=== PATIENT | female | born 1970 ===

== ENCOUNTER 2016-12-20 19:35 | Emergency (ER) | payer OTHER ==
--- NOTE | 2016-12-21 00:53 | ED MAR SUMMARY ---
..... Medication Administration Record [facility] [address], [place] [id number] Patient: FRANCISCA BULLARD Visit ID: [id number] 46y, F Weight: 92.9 kg Height/Length: 65 in BMI: 34.1 ALLERGIES: Sulfa Antibiotics
--- NOTE | 2016-12-21 00:53 | ED CLINICAL REPORT ---
Clinical Report - Physicians/Mid Levels [facility] [address] [place] [address] 12/20/2016 19:39 Patient: FRANCISCA BULLARD Time Seen: 19:47; initial patient contact, initial documentation, patient care assumed. Arrived- By private vehicle. Historian- patient. HISTORY OF PRESENT ILLNESS Chief Complaint: COUGH. This started about 1 months ago and is still present. The illness is described as moderate. The patient has had a dry cough, nasal congestion and a nasal discharge. No sputum production, chest discomfort or pain, fever or muscle aches. No sore throat, sinus pressure, sinus drainage or ear pain. The patient has had mild difficulty breathing (bad coughing spells where it is also hard to breathe and then she gets dizzy). The patient has also had wheezing. Additional history - No known contact with a sick individual. No recent travel. Similar symptoms previously: None. Recent medical care: The patient was seen recently in a clinic. ( has been to 3 providers (urgent care and walk in clinics) for symptoms, finished course of prednisone, still on augmentin. still not feeling better after 1 month). REVIEW OF SYSTEMS No headache. All systems otherwise negative, except as recorded above. PAST HISTORY See nurses notes. PROBLEMS: no known problems. ADDITIONAL SURGERIES: Laparoscopy. --19:50 Celeste Escobedo R.N. SOCIAL HISTORY Never smoker. Not exposed to second-hand smoke at home. No alcohol use or drug use. No recent travel. Is a local resident. FAMILY HISTORY Negative. ADDITIONAL NOTES The nursing notes have been reviewed with agreement regarding the chief complaint, HPI, ROS, PMH and patient medications and allergies. PHYSICAL EXAM Vital Signs: 12/20/2016 19:45 BP: 117/64. HR: 71. RR: 18. O2 saturation: 98%. Temp: 97.6 F. Have been reviewed as normal and appear to be correct. Appearance: Alert. No acute distress. Eyes: Pupils equal, round and reactive to light. Eyes normal inspection. ENT: Ears normal. Nose normal. Pharynx normal. Uvula midline. Neck: Normal inspection. Neck supple. CVS: Normal heart rate and rhythm. Heart sounds normal. Pulses normal. Respiratory: No respiratory distress. Breath sounds normal. Back: Normal inspection. Skin: Skin warm and dry. Normal skin color. No rash. Normal skin turgor. Extremities: Extremities exhibit normal ROM. No lower extremity edema. Neuro: Oriented X 3. No motor deficit. No sensory deficit. PROGRESS AND PROCEDURES Patient counseled in person regarding the patient's stable condition and diagnosis. 20:16. Differential Diagnosis: Other possible considerations: uri, viral illness, bronchitis, pneumonia, bronchospasm. Above considerations are based on history and physical exam. Differential diagnosis was discussed with patient. Disposition: Discharged home in good and unchanged condition (20:17). Condition: good and stable. CLINICAL IMPRESSION Acute viral bronchitis associated with bronchospasm. INSTRUCTIONS Drink plenty of fluids until better. (continue with current medications as previously directed and discussed). Warnings: GENERAL WARNINGS: Return or contact your physician immediately if your condition worsens or changes unexpectedly, if not improving as expected, or if other problems arise. Specifically return if problem worsens. Prescription Medications: Albuterol HFA oral inhaler: inhale 1 to 2 puffs every four to six hours as needed for difficulty breathing. Dispense one (1) unit. No refills. Tessalon Perles 100 mg: Take 1 orally every 8 hours as needed for cough. Dispense twenty (20). No refills. Substitution is permissible. Follow-up: Follow up with your doctor in about five days as needed. Call for an appointment. Summary of care provided to patient. Understanding of the discharge instructions verbalized by parent. (Electronically signed by Jess Grace A.R.N.P. 12/20/2016 20:57)
--- NOTE | 2016-12-21 00:53 | ED DISCHARGE INSTRUCTIONS ---
Patient: FRANCISCA BULLARD General Instructions [facility] VisitID: [id number] [place] [address] 46y, F Registration Date/Time: 12/20/2016 Acute viral bronchitis associated with bronchospasm. INSTRUCTIONS Drink plenty of fluids until better. (continue with current medications as previously directed and discussed). Warnings: GENERAL WARNINGS: Return or contact your physician immediately if your condition worsens or changes unexpectedly, if not improving as expected, or if other problems arise. Specifically return if problem worsens. Prescription Medications: Albuterol HFA oral inhaler: inhale 1 to 2 puffs every four to six hours as needed for difficulty breathing. Dispense one (1) unit. No refills. Tessalon Perles 100 mg: Take 1 orally every 8 hours as needed for cough. Dispense twenty (20). No refills. Substitution is permissible. Follow-up: Follow up with your doctor in about five days as needed. Call for an appointment. Summary of care provided to patient. Understanding of the discharge instructions verbalized by parent. ADDITIONAL INFORMATION Bronchitis (Adult: Abx Tx) BRONCHITIS is an infection of the air passages (bronchial tubes). It often occurs during the common cold. Symptoms include cough with mucus (phlegm) and low-grade fever. Bronchitis usually lasts 7-14 days. Mild cases can be treated with simple home remedies. More severe infection is treated with an antibiotic. Home Care: If symptoms are severe, rest at home for the first 2-3 days. When you resume activity, don't let yourself get too tired. Do not smoke. Avoid being exposed to the smoke of others. You may use acetaminophen (Tylenol) or ibuprofen (Motrin, Advil) to control fever or pain, unless another medicine was prescribed for this. [NOTE: If you have chronic liver or kidney disease or ever had a stomach ulcer or GI bleeding, talk with your doctor before using these medicines.] Your appetite may be poor, so a light diet is fine. Avoid dehydration by drinking 6-8 glasses of fluids per day (water, soft, drinks, juices, tea, soup, etc.). Extra fluids will help loosen secretions in the lungs. Tudc-yck-nnnasog cough medicines that containdextromethorphan(such as Robitussin DM) and decongestants (Actifed or Sudafed) may help relieve cough and congestion. [NOTE: Do not use decongestants if you have high blood pressure.] Finish all antibiotic medicine, even if you are feeling better after only a few days. Follow Up with your doctor or as directed if you dont start to feel better after three days. [NOTE: If you are age 65 or older, or if you have chronic asthma or COPD, we recommend a PNEUMOCOCCAL VACCINATION every five years and a yearly INFLUENZAVACCINATION (FLU-SHOT) every . Ask your doctor about this. If you had an X-ray, a radiologist will review it. You will be notified of any new findings that may affect your care.] Get Prompt Medical Attention if any of the following occur: Fever over 100.4F (38.0C) for more than three days Trouble breathing, wheezing or pain with breathing Coughing up blood or increased amounts of colored sputum Weakness, drowsiness, headache, facial pain, ear pain or a stiff neck Albuterol Sulfate Pressurized inhalation, suspension What is this medicine? ALBUTEROL (al BYOO ter ole) is a bronchodilator. It helps open up the airways in your lungs to make it easier to breathe. This medicine is used to treat and to prevent bronchospasm. How should I use this medicine? This medicine is for inhalation through the mouth. Follow the directions on your prescription label. Take your medicine at regular intervals. Do not use more often than directed. Make sure that you are using your inhaler correctly. Ask you doctor or health care provider if you have any questions. Talk to your saw runner regarding the use of this medicine in children. Special care may be needed. What side effects may I notice from receiving this medicine? Side effects that you should report to your doctor or health manager primary care as soon as possible: allergic reactions like skin rash, itching or hives, swelling of the face, lips, or tongue breathing problems chest pain feeling faint or lightheaded, falls high blood pressure irregular heartbeat fever muscle cramps or weakness pain, tingling, numbness in the hands or feet vomiting Side effects that usually do not require medical attention (report to your doctor or health manager primary care if they continue or are bothersome): cough difficulty sleeping headache nervousness or trembling stomach upset stuffy or runny nose throat irritation unusual taste What may interact with this medicine? anti-infectives like chloroquine and pentamidine caffeine cisapride diuretics medicines for colds medicines for depression or for emotional or psychotic conditions medicines for weight loss including some herbal products methadone some antibiotics like clarithromycin, erythromycin, levofloxacin, and linezolid some heart medicines steroid hormones like dexamethasone, cortisone, hydrocortisone theophylline thyroid hormones What if I miss a dose? If you miss a dose, use it as soon as you can. If it is almost time for your next dose, use only that dose. Do not use double or extra doses. Where should I keep my medicine? Keep out of the reach of children. Store at room temperature between 15 and 30 degrees C (59 and 86 degrees F). The contents are under pressure and may burst when exposed to heat or flame. Do not freeze. This medicine does not work as well if it is too cold. Throw away any unused medicine after the expiration date. Inhalers need to be thrown away after the labeled number of puffs have been used or by the expiration date; whichever comes first. Ventolin HFA should be thrown away 12 months after removing from foil pouch. Check the instructions that come with your medicine. What should I tell my health care provider before I take this medicine? They need to know if you have any of the following conditions: diabetes heart disease or irregular heartbeat high blood pressure pheochromocytoma seizures thyroid disease an unusual or allergic reaction to albuterol, levalbuterol, sulfites, other medicines, foods, dyes, or preservatives or trying to get breast-feeding What should I watch for while using this medicine? Tell your doctor or health manager primary care if your symptoms do not improve. Do not use extra albuterol. If your asthma or bronchitis gets worse while you are using this medicine, call your doctor right away. If your mouth gets dry try chewing sugarless gum or sucking hard candy. Drink water as directed. Benzonatate Oral capsule, liquid filled What is this medicine? BENZONATATE (lazaro ALTAF na molina) is used to treat cough. How should I use this medicine? Take this medicine by mouth with a glass of water. Follow the directions on the prescription label. Avoid breaking, chewing, or sucking the capsule, as this can cause serious side effects. Take your medicine at regular intervals. Do not take your medicine more often than directed. Talk to your saw runner regarding the use of this medicine in children. While this drug may be prescribed for children as young as 10 years old for selected conditions, precautions do apply. What side effects may I notice from receiving this medicine? Side effects that you should report to your doctor or health manager primary care as soon as possible: allergic reactions like skin rash, itching or hives, swelling of the face, lips, or tongue breathing problems chest pain confusion or hallucinations irregular heartbeat numbness of mouth or throat seizures Side effects that usually do not require medical attention (report to your doctor or health manager primary care if they continue or are bothersome): burning feeling in the eyes constipation headache nasal congestion stomach upset What may interact with this medicine? Do not take this medicine with any of the following medications: MAOIs like Carbex, Eldepryl, Marplan, Nardil, and Parnate What if I miss a dose? If you miss a dose, take it as soon as you can. If it is almost time for your next dose, take only that dose. Do not take double or extra doses. Where should I keep my medicine? Keep out of the reach of children. Store at room temperature between 15 and 30 degrees C (59 and 86 degrees F). Keep tightly closed. Protect from light and moisture. Throw away any unused medicine after the expiration date. What should I tell my health care provider before I take this medicine? They need to know if you have any of these conditions: kidney or liver disease an unusual or allergic reaction to benzonatate, anesthetics, other medicines, foods, dyes, or preservatives or trying to get breast-feeding What should I watch for while using this medicine? Tell your doctor if your symptoms do not improve or if they get worse. If you have a high fever, skin rash, or headache, see your health manager primary care. You may get drowsy or dizzy. Do not drive, use machinery, or do anything that needs mental alertness until you know how this medicine affects you. Do not sit or stand up quickly, especially if you are an older patient. This reduces the risk of dizzy or fainting spells. You have been given the following additional information: Bronchitis, Antiobiotic Treatment (Adult) Albuterol Sulfate Pressurized inhalation, suspension Benzonatate Oral capsule, liquid filled (Electronically signed by Jess Grace A.R.N.P. 12/20/2016 20:57)
--- NOTE | 2016-12-21 00:53 | ED NURSING NOTES ---
Clinical Report - Nurses [facility] [address] [place] [address] 12/20/2016 19:39 Patient: FRANCISCA BULLARD TRIAGE Triage time 19:45 Dec 20 2016. Acuity: LEVEL 3. Chief Complaint: (cold symptoms for 1 month). 19:45 12/20/16. SEPSIS SCREEN: Sepsis Screen. Negative (no infection suspected/documented). TERESSA COMA SCORE: Teressa Coma Scale: 15- eyes open spontaneously (4); best verbal response- oriented x 4 (5); best motor response- obeys commands (6). --19:53 Celeste Escobedo R.N. 19:45 12/20/16. BP: 117/64. HR: 71. RR: 18. O2 saturation: 98%. Temp: 97.6 F. Pain level now 0/10. --19:53 Celeste Escobedo R.N. Weight: 92.9 kg stated. Height/Length: 65 inches Per Patient. BMI: 34.1. --19:45 Celeste Escobedo R.N. Medications Amoxicillin. --19:47 Celeste Escobedo R.N. PredniSONE. --19:48 Celeste Escobedo R.N. Augmentin. --19:49 Celeste Escobedo R.N. Iron. --19:50 Celeste Escobedo R.N. Vitamin D2. --19:50 Celeste Escobedo R.N. Allergies Sulfa Antibiotics. --19:47 Celeste Escobedo R.N. Medication/allergy information source: the patient. --19:53 Celeste Escobedo R.N. History Arrived by private vehicle. Historian: patient. Onset. (1 months). ( has been to 3 providers (urgent care and walk in clinics) for symptoms, finished course of prednisone, still on augmentin. still not feeling better after 1 month, Fatigue, dry cough.). 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 PAST MEDICAL HX: Immunizations: seasonal influenza. Last normal menstrual period was 1 week ago. SOCIAL HX: Never smoker. No alcohol use or drug use. No infectious disease exposure. ABUSE ASSESSMENT: No report of abuse. SELF HARM ASSESSMENT: A self harm assessment was performed. The patient answered "no" to the question "Have you recently felt down, depressed, or hopeless?", "Have you noticed less interest or pleasure in doing things?", "Do you have thoughts of harming or killing yourself?", "Are you here because you tried to hurt yourself?", "Have you ever tried to hurt yourself before today?", "Have you recently had thoughts about harming or killing others?" and "Do you have any dangerous items in your possession?". FALL RISK ASSESSMENT: Fall risk assessment completed. No fall risk identified. NUTRITIONAL RISK ASSESSMENT: The nutritional risk assessment revealed no deficiencies. FUNCTIONAL ASSESSMENT: Functional assessment: no impairments noted. LEARNING NEEDS ASSESSMENT: The learning needs assessment revealed no barriers. SKIN INTEGRITY ASSESSMENT: Skin integrity risk assessment completed. No skin integrity risk identified. --19:53 Celeste Escobedo R.N. PROBLEMS: no known problems. ADDITIONAL SURGERIES: Laparoscopy. --19:50 Celeste Escobedo R.N. Interventions ID band on patient. --19:53 Celeste Escobedo R.N. PHYSICAL ASSESSMENT 19:45 12/20/16. GENERAL / NEURO / PSYCH: Alert. Oriented X 4. HEENT: Mucous membranes are pink. RESPIRATORY: Breath sounds within normal limits. CVS: Pulses within normal limits. GI / : Abdomen soft. SKIN: Skin intact. Skin is warm and dry. --00:51 Celeste Escobedo R.N. NURSING PROGRESS NOTES 19:45 12/20/16. The initial plan of care for this patient includes an assessment with efforts to address impairment of the respiratory system. This plan of care was discussed with the patient. Patient gowned. Reassurance given. Two patient identifiers checked. Call light placed in reach. Side rails up x 1. Bed placed in lowest position. Brakes of bed on. Patient ready for evaluation. --19:56 Celeste Escobedo R.N. DISPOSITION / DISCHARGE 20:40 12/20/16. Condition at departure: improved and stable. The goals identified in the patient's plan of care were met. No learning barriers present. Patient verbalized understanding. Written instructions provided in Palestinian. The patient was discharged home. She left the Emergency Department ambulatory and via private vehicle. Patient driving. --00:53 Celeste Escobedo R.N. 20:40 12/20/16. BP: 112/67. HR: 69. RR: 18. O2 saturation: 100%. Temp: 98.0 F. Pain level now 5/10. --00:53 Celeste Escobedo R.N. Departure time: 2039Dec 20 2016. --00:53 Celeste Escobedo R.N. Locked/Released at 12/21/2016 0:53 by Celeste Escobedo R.N.
--- NOTE | 2016-12-21 00:53 | ED NURSING NOTES ---
Clinical Report - Nurses [facility] [address] [place] [address] 12/20/2016 19:39 Patient: FRANCISCA BULLARD TRIAGE Triage time 19:45 Dec 20 2016. Acuity: LEVEL 3. Chief Complaint: (cold symptoms for 1 month). 19:45 12/20/16. SEPSIS SCREEN: Sepsis Screen. Negative (no infection suspected/documented). TERESSA COMA SCORE: Teressa Coma Scale: 15- eyes open spontaneously (4); best verbal response- oriented x 4 (5); best motor response- obeys commands (6). --19:53 Celeste Escobedo R.N. 19:45 12/20/16. BP: 117/64. HR: 71. RR: 18. O2 saturation: 98%. Temp: 97.6 F. Pain level now 0/10. --19:53 Celeste Escobedo R.N. Weight: 92.9 kg stated. Height/Length: 65 inches Per Patient. BMI: 34.1. --19:45 Celeste Escobedo R.N. Medications Amoxicillin. --19:47 Celeste Escobedo R.N. PredniSONE. --19:48 Celeste Escobedo R.N. Augmentin. --19:49 Celeste Escobedo R.N. Iron. --19:50 Celeste Escobedo R.N. Vitamin D2. --19:50 Celeste Escobedo R.N. Allergies Sulfa Antibiotics. --19:47 Celeste Escobedo R.N. Medication/allergy information source: the patient. --19:53 Celeste Escobedo R.N. History Arrived by private vehicle. Historian: patient. Onset. (1 months). ( has been to 3 providers (urgent care and walk in clinics) for symptoms, finished course of prednisone, still on augmentin. still not feeling better after 1 month, Fatigue, dry cough.). 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 PAST MEDICAL HX: Immunizations: seasonal influenza. Last normal menstrual period was 1 week ago. SOCIAL HX: Never smoker. No alcohol use or drug use. No infectious disease exposure. ABUSE ASSESSMENT: No report of abuse. SELF HARM ASSESSMENT: A self harm assessment was performed. The patient answered "no" to the question "Have you recently felt down, depressed, or hopeless?", "Have you noticed less interest or pleasure in doing things?", "Do you have thoughts of harming or killing yourself?", "Are you here because you tried to hurt yourself?", "Have you ever tried to hurt yourself before today?", "Have you recently had thoughts about harming or killing others?" and "Do you have any dangerous items in your possession?". FALL RISK ASSESSMENT: Fall risk assessment completed. No fall risk identified. NUTRITIONAL RISK ASSESSMENT: The nutritional risk assessment revealed no deficiencies. FUNCTIONAL ASSESSMENT: Functional assessment: no impairments noted. LEARNING NEEDS ASSESSMENT: The learning needs assessment revealed no barriers. SKIN INTEGRITY ASSESSMENT: Skin integrity risk assessment completed. No skin integrity risk identified. --19:53 Celeste Escobedo R.N. PROBLEMS: no known problems. ADDITIONAL SURGERIES: Laparoscopy. --19:50 Celeste Escobedo R.N. Interventions ID band on patient. --19:53 Celeste Escobedo R.N. PHYSICAL ASSESSMENT 19:45 12/20/16. GENERAL / NEURO / PSYCH: Alert. Oriented X 4. HEENT: Mucous membranes are pink. RESPIRATORY: Breath sounds within normal limits. CVS: Pulses within normal limits. GI / : Abdomen soft. SKIN: Skin intact. Skin is warm and dry. --00:51 Celeste Escobedo R.N. NURSING PROGRESS NOTES 19:45 12/20/16. The initial plan of care for this patient includes an assessment with efforts to address impairment of the respiratory system. This plan of care was discussed with the patient. Patient gowned. Reassurance given. Two patient identifiers checked. Call light placed in reach. Side rails up x 1. Bed placed in lowest position. Brakes of bed on. Patient ready for evaluation. --19:56 Celeste Escobedo R.N. DISPOSITION / DISCHARGE 20:40 12/20/16. Condition at departure: improved and stable. The goals identified in the patient's plan of care were met. No learning barriers present. Patient verbalized understanding. Written instructions provided in Egyptian. The patient was discharged home. She left the Emergency Department ambulatory and via private vehicle. Patient driving. --00:53 Celeste Escobedo R.N. 20:40 12/20/16. BP: 112/67. HR: 69. RR: 18. O2 saturation: 100%. Temp: 98.0 F. Pain level now 5/10. --00:53 Celeste Escobedo R.N. Departure time: 2039Dec 20 2016. --00:53 Celeste Escobedo R.N. Locked/Released at 12/21/2016 0:53 by Celeste Escobedo R.N.
--- NOTE | 2016-12-21 00:53 | ED CLINICAL REPORT ---
Clinical Report - Physicians/Mid Levels [facility] [address] [place] [address] 12/20/2016 19:39 Patient: FRANCISCA BULLARD Time Seen: 19:47; initial patient contact, initial documentation, patient care assumed. Arrived- By private vehicle. Historian- patient. HISTORY OF PRESENT ILLNESS Chief Complaint: COUGH. This started about 1 months ago and is still present. The illness is described as moderate. The patient has had a dry cough, nasal congestion and a nasal discharge. No sputum production, chest discomfort or pain, fever or muscle aches. No sore throat, sinus pressure, sinus drainage or ear pain. The patient has had mild difficulty breathing (bad coughing spells where it is also hard to breathe and then she gets dizzy). The patient has also had wheezing. Additional history - No known contact with a sick individual. No recent travel. Similar symptoms previously: None. Recent medical care: The patient was seen recently in a clinic. ( has been to 3 providers (urgent care and walk in clinics) for symptoms, finished course of prednisone, still on augmentin. still not feeling better after 1 month). REVIEW OF SYSTEMS No headache. All systems otherwise negative, except as recorded above. PAST HISTORY See nurses notes. PROBLEMS: no known problems. ADDITIONAL SURGERIES: Laparoscopy. --19:50 eCleste Escobedo R.N. SOCIAL HISTORY Never smoker. Not exposed to second-hand smoke at home. No alcohol use or drug use. No recent travel. Is a local resident. FAMILY HISTORY Negative. ADDITIONAL NOTES The nursing notes have been reviewed with agreement regarding the chief complaint, HPI, ROS, PMH and patient medications and allergies. PHYSICAL EXAM Vital Signs: 12/20/2016 19:45 BP: 117/64. HR: 71. RR: 18. O2 saturation: 98%. Temp: 97.6 F. Have been reviewed as normal and appear to be correct. Appearance: Alert. No acute distress. Eyes: Pupils equal, round and reactive to light. Eyes normal inspection. ENT: Ears normal. Nose normal. Pharynx normal. Uvula midline. Neck: Normal inspection. Neck supple. CVS: Normal heart rate and rhythm. Heart sounds normal. Pulses normal. Respiratory: No respiratory distress. Breath sounds normal. Back: Normal inspection. Skin: Skin warm and dry. Normal skin color. No rash. Normal skin turgor. Extremities: Extremities exhibit normal ROM. No lower extremity edema. Neuro: Oriented X 3. No motor deficit. No sensory deficit. PROGRESS AND PROCEDURES Patient counseled in person regarding the patient's stable condition and diagnosis. 20:16. Differential Diagnosis: Other possible considerations: uri, viral illness, bronchitis, pneumonia, bronchospasm. Above considerations are based on history and physical exam. Differential diagnosis was discussed with patient. Disposition: Discharged home in good and unchanged condition (20:17). Condition: good and stable. CLINICAL IMPRESSION Acute viral bronchitis associated with bronchospasm. INSTRUCTIONS Drink plenty of fluids until better. (continue with current medications as previously directed and discussed). Warnings: GENERAL WARNINGS: Return or contact your physician immediately if your condition worsens or changes unexpectedly, if not improving as expected, or if other problems arise. Specifically return if problem worsens. Prescription Medications: Albuterol HFA oral inhaler: inhale 1 to 2 puffs every four to six hours as needed for difficulty breathing. Dispense one (1) unit. No refills. Tessalon Perles 100 mg: Take 1 orally every 8 hours as needed for cough. Dispense twenty (20). No refills. Substitution is permissible. Follow-up: Follow up with your doctor in about five days as needed. Call for an appointment. Summary of care provided to patient. Understanding of the discharge instructions verbalized by parent. (Electronically signed by Jess Grace A.R.N.P. 12/20/2016 20:57)
--- NOTE | 2016-12-21 00:53 | ED MAR SUMMARY ---
..... Medication Administration Record [facility] [address], [place] [id number] Patient: FRANCISCA BULLARD Visit ID: [id number] 46y, F Weight: 92.9 kg Height/Length: 65 in BMI: 34.1 ALLERGIES: Sulfa Antibiotics
--- NOTE | 2016-12-21 00:54 | ED MED RECONCILIATION SUMMARY ---
Patient: FRANCISCA BULLARD Medication Reconciliation Report [facility] VisitID: [id number] [address] [place] [address] 46y, F Registration Date/Time: 12/20/2016 Weight: 92.9 kg Height/Length: 65 in. BMI: 34.1 ALLERGIES: Sulfa Antibiotics The patient's Home Medications are listed below: THE FOLLOWING MEDICATIONS NEED TO BE RECONCILED: Amoxicillin Augmentin Iron PredniSONE Vitamin D2 The source(s) of the original Home Medication information: patient The following Medications were given to the patient in the Emergency Department: None. The following Medications were prescribed to the patient: Albuterol HFA oral inhaler: inhale 1 to 2 puffs every four to six hours as needed for difficulty breathing. Dispense one (1) unit. No refills. -- Jess Grace, Braxton.R.N.P. Tessalon Perles 100 mg: Take 1 orally every 8 hours as needed for cough. Dispense twenty (20). No refills. Substitution is permissible. -- Jess Grace A.R.N.P.
--- NOTE | 2016-12-21 00:54 | ED MED RECONCILIATION SUMMARY ---
Patient: FRANCISCA BULLARD Medication Reconciliation Report [facility] VisitID: [id number] [address] [place] [address] 46y, F Registration Date/Time: 12/20/2016 Weight: 92.9 kg Height/Length: 65 in. BMI: 34.1 ALLERGIES: Sulfa Antibiotics The patient's Home Medications are listed below: THE FOLLOWING MEDICATIONS NEED TO BE RECONCILED: Amoxicillin Augmentin Iron PredniSONE Vitamin D2 The source(s) of the original Home Medication information: patient The following Medications were given to the patient in the Emergency Department: None. The following Medications were prescribed to the patient: Albuterol HFA oral inhaler: inhale 1 to 2 puffs every four to six hours as needed for difficulty breathing. Dispense one (1) unit. No refills. -- Jess Grace, Braxton.R.N.P. Tessalon Perles 100 mg: Take 1 orally every 8 hours as needed for cough. Dispense twenty (20). No refills. Substitution is permissible. -- Jess Grace A.R.N.P.
== END 2016-12-20 20:40 | disposition home or self-care (01) ==
LOC: ED SRH 19:35
DX: J20.9 Acute bronchitis, unspecified (principal); J98.01 Acute bronchospasm